=== PATIENT | female | born 1960 | race Caucasian/White ===

== ENCOUNTER → 2025-05-28 11:29 | Outpatient (REF) | payer OTHER, SELFPAY | LOC: RAD 11:29 | PROVIDERS: ATTENDING PHYSICIAN Student in an Organized Health Care Education/Training Program; FAMILY PHYSICIAN Student in an Organized Health Care Education/Training Program | DX: E06.3 Autoimmune thyroiditis (principal); M05.9 Rheumatoid arthritis with rheumatoid factor, unspecified; M25.50 Pain in unspecified joint; R76.89 Other specified abnormal immunological findings in serum | CPT/HCPCS: 73110; 73130 ==